=== PATIENT | male | born 1985 | race Caucasian/White ===

== ENCOUNTER → 2024-02-15 09:56 | Outpatient (BNVA) | payer MEDICAID, SELFPAY | PROVIDERS: Visit Provider Podiatrist Foot & Ankle Surgery | DX: M79.672 Pain in left foot (principal); E11.42 Type 2 diabetes mellitus with diabetic polyneuropathy; M72.2 Plantar fascial fibromatosis; M24.572 Contracture, left ankle; G62.9 Polyneuropathy, unspecified | CPT/HCPCS: 73630 ==

== ENCOUNTER 2024-06-02 17:19 | Emergency (ER) | payer MEDICAID, SELFPAY ==
[2024-06-02 17:22] VITALS: BP 125/80; PULSE 109; RESP 24; TEMP 36.6; O2SAT 99; BMI 29.7
--- NOTE | 2024-06-02 17:28 | ECG_ITS ---
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 Measurements Intervals [place] Rate: 111 P: 65 [place]: 164 QRS: 247 QRSD: 98 T: 80 QT: 329 QTc: 448 Interpretive Statements SINUS TACHYCARDIA POSSIBLE LEFT ATRIAL ENLARGEMENT [-0.1mV P-WAVE IN V1/V2] INDETERMINATE AXIS PATTERN CONSISTENT WITH PULMONARY DISEASE No previous ECG available for comparison Electronically Signed On 06-02-2024 20:06:27 CDT by Abundio Sky M.D. [email or web address]
--- NOTE | 2024-06-02 17:31 | XRR_ITS ---
PROCEDURE INFORMATION: Exam: XR Chest Exam date and time: 06/02/2024 5:35 PM Age: 38 years old Clinical indication: Pain; Chest pressure; Additional info: Cp TECHNIQUE: Imaging protocol: Radiologic exam of the chest. Views: 1 view. COMPARISON: No relevant prior studies available. FINDINGS: Lungs: Lungs are clear bilaterally. Pleural spaces: No pleural effusion. No pneumothorax. Heart/Mediastinum: The cardiac silhouette and mediastinal contours are unremarkable. Bones/joints: Unremarkable for age. XR/XR chest 1V portable [id number] IMPRESSION: No acute cardiopulmonary process.
[2024-06-02 17:42] LABS: Basophils # 0.1 10^3/uL (0.0-0.1); Basophils % 0.4 %; Eosinophils % 0.2 %; Lymphocytes # 2.6 10^3/uL (0.8-4.8); Lymphocytes % 14.9 %; Mean Corpuscular HGB Conc 35.8 g/dL (30-55); Mean Corpuscular Hemoglobin 29.7 pg (27-33); Mean Corpuscular Volume 82.9 fl (82-101); Mean Platelet Volume 10.4 fL (7.4-10.4); Monocytes # 1.2 10^3/uL (0.2-0.9); Monocytes % 6.8 %; Neutrophils # 13.77 10^3/uL (1.8-7.7); Neutrophils % 77.4 %; Nucleated Red Blood Cells % 0 %; Platelet Count 319 10^3/cmm (157-399); Red Blood Count 6.03 10^6/uL (3.85-5.65); Red Cell Distribution Width 12.7 % (12.1-15.1); White Blood Count 17.77 10^3/uL (3.29-11.43)
--- NOTE | 2024-06-02 17:54 | ED_ITS ---
HPI - Chest Pain 2 General: Chief Complaint: Chest Pain Stated Complaint: WEAKNESS Time Seen by Provider: 06/02/24 17:21 Source: patient and EMS Mode of arrival: EMS Limitations: no limitations History of Present Illness: 38-year-old male who is currently rehab at [facility] states that he was outside playing basketball in the heat states he felt like yellow overheated started having chest pain along with shortness of breath and felt like he was going to pass out. He states he does have a cardiac history no stents in the past. He denies any vomiting denies any fevers. Associated symptoms: Reports dyspnea; Deny abdominal pain, fever(s), nausea or vomiting Related Data Previous Rx's Medication Instructions Recorded diabetic shoes with 3 inserts #1 ea 02/15/24 Allergies Allergy/AdvReac Type Severity Reaction Status Date / Time ceftriaxone [From Rocephin] Allergy ALGY-Anaphy Verified 06/02/24 17:36 laxis paxil Allergy ADR-Halluci Uncoded 06/02/24 17:36 nating zoloft Allergy ADR-Halluci Uncoded 06/02/24 17:36 nating Review of Systems 2 Const: Denies: fever(s), chills, body aches or change in appetite ENMT: Denies: throat pain or dental pain Card: Reports: chest pain and pre-syncope Resp: Reports: dyspnea GI: Denies: abdominal pain, nausea, vomiting or diarrhea Musc: Denies: neck pain or back pain Skin/Breast: Denies: rash Neuro: Denies: headache(s) Physical Exam 2 Const: COMMON NORMALS: patient oriented x3 HENMT: COMMON NORMALS: normocephalic and atraumatic HEAD & SCALP: n ormocephalic and atraumatic Eye: COMMON NORMALS: EOMs intact bilaterally Neck/C-Spine: COMMON NORMALS: full ROM and supple Chest: COMMONS NORMALS: normal inspection of the chest and normal palpation of entire chest wall Resp: COMMON NORMALS: normal respiratory effort, No retractions, No use of accessory muscles and clear to auscultation bilaterally AUSCULTATION: clear to auscultation bilaterally Cardio: COMMON NORMALS: regular rhythm and No murmurs present (Cardio) R ATE: tachycardic RHYTHM: regular rhythm GI: COMMON NORMALS: Normal to inspection, nondistended, normoactive bowel sounds present, Soft to palpation, non-tender and no masses PALPATION: Yes Soft to palpation Extremity: COMMON NORMALS: normal to inspection and full ROM Neuro: COMMON NORMALS: patient oriented x3, moves all extremities and no focal motor deficits Psych: COMMON NORMALS: mental status grossly normal, Normal thought process present and cooperative THOUGHT PROCESS: Normal thought process present Skin: COMMON NORMALS: no rashes or lesions noted and no wounds GENERAL SKIN EXAM: no rashes or lesions noted Course 2 Vital Signs: Vital signs: Vital Signs Temperature 97.9 F 06/02/24 17:22 Pulse Rate 111 H 06/02/24 20:11 Respiratory Rate 16 06/02/24 20:11 Blood Pressure 123/92 06/02/24 20:11 Pulse Oximetry 100 06/02/24 20:11 Oxygen Delivery Me thod Room Air 06/02/24 20:11 MDM - Chest Pain Medical Decision Making Patient presents here with heat exposure likely heat exhaustion he had had some chest pain shortness of breath his troponins here are negative CT scan showed no PE he feels improved after fluids he stable for discharge drink plenty fluids avoid the heat return if worsening. Medical Records I reviewed the patient's medical records. Lab Data I reviewed the patient's lab results. 06/02/24 17:08 06/02/24 17:08 Radiology Impressions Chest X-Ray 06/02/24 17:31 IMPRESSION: No acute cardiopulmonary process. Chest CTA 06/02/24 18:07 IMPRESSION: 1. No evidence for pulmonary embolism. 2. No acute cardiopulmonary process. 3. Incidental/nonacute findings are listed in the report. Laboratory Results WBC 17.77 10^3/uL (3.29-11.43) H 06/02/24 17:08 RBC 6.03 10^6/uL (3.85-5.65) H 06/02/24 17:08 Hgb 17.90 g/dL (11.27-16.99) H 06/02/24 17:08 Hct 50.0 % (37-53) 06/02/24 17:08 MCV 82.9 fl (82-101) 06/02/24 17:08 MCH 29.7 pg (27-33) 06/02/24 17:08 MCHC 35.8 g/dL (30-55) 06/02/24 17:08 RDW 12.7 % (12.1-15.1) 06/02/24 17:08 Plt Count 319 10^3/cmm (157-399) 06/02/24 17:08 MPV 10.4 fL (7.4-10.4) 06/02/24 17:08 Neut % (Auto) 77.4 % 06/02/24 17:08 Lymph % (Auto) 14.9 % 06/02/24 17:08 [place] % (Auto) 6.8 % 06/02/24 17:08 Eos % (Auto) 0.2 % 06/02/24 17:08 Baso % (Auto) 0.4 % 06/02/24 17:08 Neut # (Auto) 13.77 10^3/uL (1.8-7.7) H 06/02/24 17:08 Lymph # (Auto) 2.6 10^3/uL (0.8-4.8) 06/02/24 17:08 [place] # (Auto) 1.2 10^3/uL (0.2-0.9) H 06/02/24 17:08 Eos # (Auto) 0.0 10^3/uL (0.0-0.8) 06/02/24 17:08 Baso # (Auto) 0.1 10^3/uL (0.0-0.1) 06/02/24 17:08 Nucleated RBC % (auto) 0 % 06/02/24 17:08 Nucleated RBCs # 0.0 /100WBC 06/02/24 17:08 D-Dimer 0.75 ug/mLFEU (0-0.59) H 06/02/24 17:08 Sodium 136 mmol/L (136-145) 06/02/24 17:08 Potassium 3.4 mmol/L (3.5-5.1) L 06/02/24 17:08 Chloride 96 mmol/L (98-107) L 06/02/24 17:08 Carbon Dioxide 19 mmol/L (22-29) L 06/02/24 17:08 Anion Gap 24.4 (5-19) H 06/02/24 17:08 BUN 35 mg/dL (6-20) H 06/02/24 17:08 Creatinine 1.7 mg/dL (0.7-1.2) H 06/02/24 17:08 GFR Calculation 45.6 mL/min (90-130) L 06/02/24 17:08 Glucose 72 mg/dL (65-115) 06/02/24 17:08 Calculated Osmolality 289 mOsm/kg (285-295) 06/02/24 17:08 Calcium 9.7 mg/dL (8.5-10.5) 06/02/24 17:08 Total Bilirubin 0.2 mg/dL (0.15-1.2) 06/02/24 17:08 AST 31 U/L (0-40) 06/02/24 17:08 ALT 35 U/L (0-41) 06/02/24 17:08 Alkaline Phosphatase 106 U/L (40-130) 06/02/24 17:08 Creatine Kinase 331 U/L (39-308) H* 06/02/24 17:08 Troponin T Baseline 27 ng/L (0-15) H 06/02/24 17:08 Troponin T 120 Minute 6.48 ng/L (0-15) 06/02/24 19:11 Delta Troponin T -20.52 ABS# (0-10) L 06/02/24 19:11 NT-Pro-B Natriuret Pep 183 pg/mL (0-125) H 06/02/24 17:08 Total Protein 7.1 g/dL (6.6-8.7) 06/02/24 17:08 Albumin 4.4 g/dL (3.5-5.2) 06/02/24 17:08 Globulin 2.7 g/dL (1.3-4.6) 06/02/24 17:08 All radiology interpretation(s) finalized by discharge Discharge Plan Discharge Patient Disposition: Home Clinical Impression: Chest pain, Heat exposure Condition: Stable Prescriptions: No Action (DME) diabetic shoes with 3 inserts See Rx Instructions .Route .MEDSUPPLY Qty: 1 0RF Rx Instructions: As directed to the shoe guys Discharge Orders: Discharge ED (Routine); Ordered 06/02/24 Ordered By: George Porras Referrals: Serenity Long DO [Primary Care Provider] - Discharge Diet: Advance as tolerated Discharge Activity: Resume usual activity Patient Instructions: Chest Pain (ED), Heat Exhaustion (ED) Coding Level of Care Code ED Oracle Apex Developer for Roxanne Barrientos
[2024-06-02 18:06] LABS: D Dimer 0.75 ug/mLFEU (0-0.59)
--- NOTE | 2024-06-02 18:07 | CTR_ITS ---
PROCEDURE INFORMATION: Exam: CTA Chest With Contrast Exam date and time: 06/02/2024 6:18 PM Age: 38 years old Clinical indication: Pain and abnormal findings; Abnormal diagnostic tests; Elevated d-dimer and other: Elevated base trop; Shortness of breath; Chest pressure; Patient HX: C/O chest pain with SOB after playing basketball. Dimer of 0.75 with elevated base trop. History of mi. TECHNIQUE: Imaging protocol: Computed tomographic angiography of the chest with contrast. Exam focused on the arteries. 3D rendering (Not supervised by radiologist): MIP and/or 3D reconstructed images were created by the technologist. Radiation optimization: All CT scans at this facility use at least one of these dose optimization techniques: automated exposure control; mA and/or kV adjustment per patient size (includes targeted exams where dose is matched to clinical indication); or iterative reconstruction. Contrast material: OMNI 350; Contrast volume: 75 ml; Contrast route: INTRAVENOUS (IV); COMPARISON: CR (CHEST, ) 06/02/2024 5:35 PM RADIATION DOSE METRICS: Total DLP (mGy-cm): 551.26 FINDINGS: Pulmonary arteries: No filling defects in the pulmonary arteries to suggest pulmonary embolism. Aorta: No evidence for aortic aneurysm. Evaluation for aortic dissection is limited due to the phase of contrast-enhancement. Other arteries: Minimal atherosclerotic changes in the visualized arteries. Trachea: Tracheobronchial structures are patent. Lungs: Lungs are clear bilaterally. No pulmonary parenchymal nodules or masses. Pleural spaces: No pneumothorax. No pleural effusion. Heart: No cardiomegaly. No pericardial effusion. Esophagus: The esophagus is unremarkable. Mediastinal space: No mediastinal hematoma. No pneumomediastinum. Lymph nodes: No lymphadenopathy. Liver: The visualized liver is unremarkable. Gallbladder and biliary ducts: The visualized gallbladder is unremarkable. No dilatation of the visualized bile ducts. Pancreas: The visualized pancreas is unremarkable. No pancreatic ductal dilatation. Spleen: The visualized spleen is unremarkable. Adrenal glands: Low density nodule in the visualized right adrenal gland measuring 0.8 x 1.1 cm (series 6, image 5). Findings are consistent with an adrenal adenoma. Nodularity of the visualized left adrenal gland without a specific nodule. Kidneys and ureters: The visualized right and left kidneys are unremarkable. Bones/joints: Degenerative changes in the spine and shoulders. Soft tissues: No acute abnormality in the extrathoracic soft tissues. CT/CT angio chest PE protcl [id number] IMPRESSION: 1. No evidence for pulmonary embolism. 2. No acute cardiopulmonary process. 3. Incidental/nonacute findings are listed in the report.
[2024-06-02] MEDS: ondansetron 2 mg/ML SDV 2 mL 4 MG IVP (18:08)
[2024-06-02 18:09] LABS: Troponin(5th) Baseline 27 ng/L (0-15)
[2024-06-02 18:10] VITALS: RESP 20; O2SAT 100
[2024-06-02] MEDS: morphine 4 mg/mL SDV 1 mL IVP (18:10)
[2024-06-02] MEDS: sodium chloride 0.9% 1,000 ML 999 ML IV ×2 (18:11→19:15)
[2024-06-02 18:12] VITALS: BP 126/93; PULSE 106; O2SAT 100
[2024-06-02 18:17] LABS: Alanine Aminotransferase 35 U/L (0-41); Albumin Level 4.4 g/dL (3.5-5.2); Alkaline Phosphatase 106 U/L (40-130); Anion Gap 24.4 (5-19); Aspartate Amino Transferase 31 U/L (0-40); Blood Urea Nitrogen 35 mg/dL (6-20); Calcium 9.7 mg/dL (8.5-10.5); Carbon Dioxide 19 mmol/L (22-29); Chloride 96 mmol/L (98-107); Creatinine Clr Calc Pharmacy 81.0795; Globulin 2.7 g/dL (1.3-4.6); Glomerular Filtration Rate 45.6 mL/min (90-130); Glucose 72 mg/dL (65-115); NT Pro B Type Natriuretic Pept 183 pg/mL (0-125); Osmolality Calculated 289 mOsm/kg (285-295); Potassium 3.4 mmol/L (3.5-5.1); Sodium 136 mmol/L (136-145); Total Bilirubin 0.2 mg/dL (0.15-1.2); Total Protein 7.1 g/dL (6.6-8.7)
[2024-06-02 18:20] LABS: Creatine Phosphokinase 331 U/L (39-308)
[2024-06-02] MEDS: iohexol 350 mg/mL 500 mL Btl (per mL) IV (18:24)
[2024-06-02 19:11] VITALS: BP 134/93; PULSE 103; RESP 20; O2SAT 97
[2024-06-02 19:39] LABS: Troponin 5 2HR 6.48 ng/L (0-15)
[2024-06-02 19:40] LABS: Troponin 5 2HR Delta -20.52 ABS# (0-10)
[2024-06-02] MEDS: LORazepam 2 mg/mL INJ 1 mL 1 MG IVP (20:09)
[2024-06-02 20:11] VITALS: BP 123/92; PULSE 111; RESP 16; O2SAT 100
[2024-06-02 21:29] VITALS: BP 127/92; PULSE 98; RESP 18; O2SAT 98
== END 2024-06-02 21:33 | disposition home or self-care (01) ==
PROVIDERS: Emergency Provider Emergency Medicine; PCP Family Medicine
DX: R07.9 Chest pain, unspecified (principal); T67.9XXA Effect of heat and light, unspecified, initial encounter; X30.XXXA Exposure to excessive natural heat, initial encounter
CPT/HCPCS: 36415; 71045; 71275; 80053; 82550; 83880; 84484; 85025; 85378; 93005; 96361; 96374; 96375; 99285; J2060; J2270; J2405; J7030; Q9967

== ENCOUNTER 2024-06-05 21:57 | Observation (INO) | payer MEDICAID, SELFPAY ==
[2024-06-05] VITALS (22 sets, daily range): BP systolic 100–110; BP diastolic 67–78; PULSE 92–111; RESP 0–23; TEMP 36.7; O2SAT 90–99; BMI 33.5
--- NOTE | 2024-06-05 22:02 | ECG_ITS ---
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 Measurements Intervals [place] Rate: 108 P: 54 [place]: 144 QRS: -69 QRSD: 108 T: 65 QT: 350 QTc: 470 Interpretive Statements SINUS TACHYCARDIA POSSIBLE LEFT ATRIAL ENLARGEMENT [-0.1mV P-WAVE IN V1/V2] INDETERMINATE AXIS PATTERN CONSISTENT WITH PULMONARY DISEASE Compared to ECG 06/02/2024 17:28:26 No significant changes Electronically Signed On 06-06-2024 0:21:21 CDT by Alvaro Adames M.D. [id number]
--- NOTE | 2024-06-05 22:03 | ED_ITS ---
HPI - Seizure 2 General: Chief Complaint: Seizure Stated Complaint: post seizure Time Seen by Provider: 06/05/24 22:01 History of Present Illness: HPI Narrative: Patient presents to the ER by EMS from [facility] after having a witnessed seizure. Patient does have a history of seizures but is not had one approximately 1 year. When EMS arrived there he was postictal they checked his blood glucose and it was 46 they gave him 25 g of dextrose and D10 solution they rechecked his blood sugar it was 108. Patient is alert oriented but just feels exhausted he said he is back to normal now I did give him 4 mg Zofran on route. Patient does have a history of diabetes and is on Lantus. Blood glucose in ER was 89. Related Data Previous Rx's Medication Instructions Recorded diabetic shoes with 3 inserts #1 ea 02/15/24 Allergies Allergy/AdvReac Type Severity Reaction Status Date / Time ceftriaxone [From Rocephin] Allergy ALGY-Anaphy Verified 06/02/24 17:36 laxis paxil Allergy ADR-Halluci Uncoded 06/02/24 17:36 nating zoloft Allergy ADR-Halluci Uncoded 06/02/24 17:36 nating Review of Systems 2 General: Reports: 10 or more systems reviewed and unremarkable except in HPI and below Physical Exam 2 Const: COMMON NORMALS: no acute distress, average body habitus, patient oriented x3, no limitations, healthy appearing, alert and well nourished HENMT: COMMON NORMALS: normocephalic, atraumatic, hearing grossly normal bilaterally, external ears normal, Normal external nose present and moist oral mucous membranes HEAD & SCALP: normocephalic and atraumatic NOSE: Normal external nose present EXTERNAL EAR: Yes external ears normal Neck/C-Spine: COMMON NORMALS: no JVD Chest: COMMONS NORMALS: normal inspection of the chest and normal palpation of entire chest wall Resp: COMMON NORMALS: normal respiratory effort, No retractions, No use of accessory muscles and clear to auscultation bilaterally AUSCULTATION: clear to auscultation bilaterally Cardio: COMMON NORMALS: no JVD, regular rate, regular rhythm, S1 normal heart sound present, S2 normal heart sound present, No gallops present (Cardio), No clicks present (Cardio), No murmurs present (Cardio) and No rub (Cardio) R ATE: regular rate RHYTHM: regular rhythm HEART SOUNDS: S1 normal heart sound present and S2 normal heart sound present GI: COMMON NORMALS: Normal to inspection, nondistended, normoactive bowel sounds present, Soft to palpation, non-tender, No hepatosplenomegaly present and no masses PALPATION: Yes Soft to palpation and Yes No hepatosplenomegaly present Neuro: COMMON NORMALS: patient oriented x3 SENSORIUM/ORIENTATION: Yes alert Course 2 Vital Signs: Vital signs: Vital Signs Temperature 98.0 F 06/05/24 21:58 Pulse Rate 91 06/06/24 00:00 Respiratory Rate 18 06/06/24 00:00 Blood Pressure 108/79 06/06/24 00:00 Pulse Oximetry 96 06/06/24 00:00 Oxygen Delivery Me thod Room Air 06/05/24 21:58 MDM - Seizure Differential Diagnosis Seizure Differential Diagnosis: Likely epileptic seizure Medical Records Attestation: I reviewed the patient's medical records. Lab Data Attestation: I reviewed the patient's lab results. 06/05/24 22:00 06/05/24 22:00 Labs: Laboratory Results WBC 10.55 10^3/uL (3.29-11.43) 06/05/24 22:00 RBC 5.44 10^6/uL (3.85-5.65) 06/05/24 22:00 Hgb 15.80 g/dL (11.27-16.99) 06/05/24 22:00 Hct 46.1 % (37-53) 06/05/24 22:00 MCV 84.7 fl (82-101) 06/05/24 22:00 MCH 29.0 pg (27-33) 06/05/24 22:00 MCHC 34.3 g/dL (30-55) 06/05/24 22:00 RDW 12.5 % (12.1-15.1) 06/05/24 22:00 Plt Count 268 10^3/cmm (157-399) 06/05/24 22:00 MPV 10.1 fL (7.4-10.4) 06/05/24 22:00 Neut % (Auto) 63.9 % 06/05/24 22:00 Lymph % (Auto) 24.8 % 06/05/24 22:00 [place] % (Auto) 9.3 % 06/05/24 22:00 Eos % (Auto) 1.1 % 06/05/24 22:00 Baso % (Auto) 0.6 % 06/05/24 22:00 Neut # (Auto) 6.74 10^3/uL (1.8-7.7) 06/05/24 22:00 Lymph # (Auto) 2.6 10^3/uL (0.8-4.8) 06/05/24 22:00 [place] # (Auto) 1.0 10^3/uL (0.2-0.9) H 06/05/24 22:00 Eos # (Auto) 0.1 10^3/uL (0.0-0.8) 06/05/24 22:00 Baso # (Auto) 0.1 10^3/uL (0.0-0.1) 06/05/24 22:00 Nucleated RBC % (auto) 0 % 06/05/24 22:00 Nucleated RBCs # 0.0 /100WBC 06/05/24 22:00 Sodium 136 mmol/L (136-145) 06/05/24 22:00 Potassium 3.3 mmol/L (3.5-5.1) L 06/05/24 22:00 Chloride 93 mmol/L (98-107) L 06/05/24 22:00 Carbon Dioxide 24 mmol/L (22-29) 06/05/24 22:00 Anion Gap 22.3 (5-19) H 06/05/24 22:00 BUN 28 mg/dL (6-20) H 06/05/24 22:00 Creatinine 2.0 mg/dL (0.7-1.2) H 06/05/24 22:00 GFR Calculation 37.8 mL/min (90-130) L 06/05/24 22:00 Glucose 74 mg/dL (65-115) 06/05/24 22:00 POC Glucose 96 mg/dL (70-110) 06/06/24 00:00 Calculated Osmolality 286 mOsm/kg (285-295) 06/05/24 22:00 Calcium 9.4 mg/dL (8.5-10.5) 06/05/24 22:00 Magnesium 2.5 mg/dL (1.7-2.3) H 06/05/24 22:00 Total Bilirubin 0.3 mg/dL (0.15-1.2) 06/05/24 22:00 AST 30 U/L (0-40) 06/05/24 22:00 ALT 31 U/L (0-41) 06/05/24 22:00 Alkaline Phosphatase 107 U/L (40-130) 06/05/24 22:00 Total Protein 6.9 g/dL (6.6-8.7) 06/05/24 22:00 Albumin 4.1 g/dL (3.5-5.2) 06/05/24 22:00 Globulin 2.8 g/dL (1.3-4.6) 06/05/24 22:00 Amorphous Sediment Not Reportable 06/05/24 23:35 All radiology interpretation(s) finalized by discharge ED provider radiology interpretation(s): Patient arrived to the ER after having a seizure in the hypoglycemic. Patient admitted to using his Lantus to 25 units which is his normal dose. Patient has been had to give multiple doses of D10 to keep his blood sugar up while he was eating and drinking. Patient is unable to eat or drink anymore and is getting tired wanting to go to sleep. Dr. Martin was consulted we will place the patient in observation on MedSur on a D10 drip. Discharge Plan Discharge Patient Disposition: Placed in Observation Clinical Impression: Hypoglycemia due to insulin, Seizure Coding Level of Care Code ED Leather Cleaner for Roxanne Barrientos
[2024-06-05 22:06] LABS: Glucose Point of Care 89 mg/dL (70-110)
[2024-06-05 22:08] LABS: Basophils # 0.1 10^3/uL (0.0-0.1); Basophils % 0.6 %; Eosinophils # 0.1 10^3/uL (0.0-0.8); Eosinophils % 1.1 %; Hematocrit 46.1 % (37-53); Lymphocytes # 2.6 10^3/uL (0.8-4.8); Lymphocytes % 24.8 %; Mean Corpuscular HGB Conc 34.3 g/dL (30-55); Mean Corpuscular Volume 84.7 fl (82-101); Mean Platelet Volume 10.1 fL (7.4-10.4); Monocytes % 9.3 %; Neutrophils # 6.74 10^3/uL (1.8-7.7); Neutrophils % 63.9 %; Nucleated Red Blood Cells % 0 %; Platelet Count 268 10^3/cmm (157-399); Red Blood Count 5.44 10^6/uL (3.85-5.65); Red Cell Distribution Width 12.5 % (12.1-15.1); White Blood Count 10.55 10^3/uL (3.29-11.43)
[2024-06-05 22:25] LABS: Alanine Aminotransferase 31 U/L (0-41); Albumin Level 4.1 g/dL (3.5-5.2); Alkaline Phosphatase 107 U/L (40-130); Anion Gap 22.3 (5-19); Aspartate Amino Transferase 30 U/L (0-40); Blood Urea Nitrogen 28 mg/dL (6-20); Calcium 9.4 mg/dL (8.5-10.5); Carbon Dioxide 24 mmol/L (22-29); Chloride 93 mmol/L (98-107); Creatinine Clr Calc Pharmacy 72.9406; Globulin 2.8 g/dL (1.3-4.6); Glomerular Filtration Rate 37.8 mL/min (90-130); Glucose 74 mg/dL (65-115); Magnesium 2.5 mg/dL (1.7-2.3); Osmolality Calculated 286 mOsm/kg (285-295); Potassium 3.3 mmol/L (3.5-5.1); Sodium 136 mmol/L (136-145); Total Bilirubin 0.3 mg/dL (0.15-1.2); Total Protein 6.9 g/dL (6.6-8.7)
[2024-06-05 22:36] LABS: Glucose Point of Care 59 mg/dL (70-110)
[2024-06-05] MEDS: dextrose 10% 250 ML 1000 ML IV (22:41)
[2024-06-05 23:06] LABS: Glucose Point of Care 157 mg/dL (70-110)
[2024-06-05 23:36] LABS: Glucose Point of Care 128 mg/dL (70-110)
[2024-06-06] VITALS (19 sets, daily range): BP systolic 101–155; BP diastolic 71–102; PULSE 63–102; RESP 15–19; TEMP 35.9–36.6; O2SAT 94–99
[2024-06-06 00:02] LABS: Glucose Point of Care 96 mg/dL (70-110)
[2024-06-06 00:09] LABS: Charge for UA Resulting for Rev
[2024-06-06 00:12] LABS: Bilirubin Urine Negative (Negative); Blood Urine Non-haemolysed trace (Negative); Glucose Urine UA 3+ (Normal); Ketones Urine Negative (Negative); Leukocyte Esterase Urine Negative (Negative); Nitrate Urine Negative (Negative); Protein Urine 2+ (Negative); Specific Gravity, Urine 1.013 (1.005-1.030); Urine Appearance Clear (CLEAR); Urine Color Yellow (Yellow); Urobilinogen Urine 0.2 mg/dL (Negative)
[2024-06-06 00:19] LABS: Amphetamines Screen Urine Negative (Negative); Barbiturates Screen Urine Negative (Negative); Benzodiazepines Screen Urine Negative (Negative); Cocaine Screen Urine Negative (Negative); Opiate Screen Urine Negative (Negative); PCP Screen Urine Negative (Negative); THC Screen Urine Negative (Negative)
[2024-06-06] MEDS: dextrose 10% 1,000 ML 75 ML IV (00:35)
[2024-06-06 00:46] LABS: Glucose Point of Care 96 mg/dL (70-110)
--- NOTE | 2024-06-06 01:00 | PM.HP ---
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 He was brought in for evaluation in ER today after witnessed seizure at [facility]. Blood sugar checked at that time was 46. He has a history of 1 seizure back in September 2023 which she states occurred after he became hypoglycemic after giving himself insulin and being unable to tolerate a meal afterwards due to GI issues and vomiting. He received D10, blood sugar subsequently 108, but has been found not able to at the moment maintain blood sugars on his own with blood sugars decreasing again down into the 50s, requiring additional D10 push. So far without recurrence of fever. He otherwise is found to have mild hypokalemia at 3.3, but also worsening CHRISTY, creatinine 2, BUN 28. Unknown baseline renal function. Review of Systems Const: Denies: fever(s), chills, body aches or malaise ENMT: Denies: throat pain Card: Denies: chest pain, edema, pre-syncope or dyspnea on exertion Resp: Denies: dyspnea, productive cough, change in phlegm color or hemoptysis GI: Denies: abdominal pain, nausea, vomiting, diarrhea, constipation, hematochezia or melena : Denies: flank pain, difficulty urinating, urinary frequency or hematuria Musc: Denies: back pain, joint swelling or joint redness Skin/Breast: Denies: rash or new lesions Neuro: Reports: seizure-like activity; Denies: headache(s) or dizziness Medications/Allergies Home Medications Medication Instructions Recorded Confirmed Last Taken Type diabetic shoes with 3 inserts #1 ea 02/15/24 03/28/24 Unknown Rx Allergies Allergy/AdvReac Type Severity Reaction Status Date / Time ceftriaxone [From Rocephin] Allergy ALGY-Anaphy Verified 06/02/24 17:36 laxis paxil Allergy ADR-Halluci Uncoded 06/02/24 17:36 nating zoloft Allergy ADR-Halluci Uncoded 06/02/24 17:36 nating PFSH Acute PFSH: Medical History CHF (congestive heart failure) Ischemic cardiomyopathy Marijuana use Alcohol use disorder TIA (transient ischemic attack) After coronary angiography RCA occlusion CAD (coronary artery disease) Seizure in Sep 2023, after episode of hypoglycemia Type 2 diabetes mellitus Social History Alcohol intake: current Alcohol type: hard liquor Alcohol use comment: In rehab. Last drink over 1 mo ago. Substance/Drug Use: current Substance/Drug use type: Marijuana Vitals/I&O/Wt Last Vital Signs Temp 98.0 F 06/05/24 21:58 Pulse 93 06/06/24 00:50 Resp 15 06/06/24 00:50 BP 116/77 06/06/24 00:50 Pulse Ox 96 06/06/24 00:50 O2 Del Method Room Air 06/05/24 21:58 06/05/24 06/05/24 06/06/24 14:59 22:59 06:59 Intake Total 250 / 250 Balance 250 / 250 Weight last 48 hrs Weight 124.738 kg Physical Exam Const: COMMON NORMALS: patient oriented x3 and alert GENERAL APPEARANCE: cooperative ORIENTATION/CONSCIOUSNESS: Yes awake HENMT: COMMON NORMALS: oropharynx normal OTHER: Poor dentition. Neck/C-Spine: COMMON NORMALS: no JVD Resp: COMMON NORMALS: normal respiratory effort and clear to auscultation bilaterally AUSCULTATION: clear to auscultation bilaterally Cardio: COMMON NORMALS: no JVD, regular rhythm, S1 normal heart sound present, S2 normal heart sound present and No murmurs present (Cardio) RHYTHM: regular rhythm HEART SOUNDS: S1 normal heart sound present and S2 normal heart sound present GI: COMMON NORMALS: Normal to inspection, nondistended, normoactive bowel sounds present, Soft to palpation and non-tender PALPATION: Yes Soft to palpation Extremity: COMMON NORMALS: no joint enlargement and no pedal edema Neuro: COMMON NORMALS: patient oriented x3 and moves all extremities SENSORIUM/ORIENTATION: Yes alert Skin: COMMON NORMALS: no rashes or lesions noted GENERAL SKIN EXAM: no rashes or lesions noted Data 06/05/24 22:00 06/05/24 22:00 A&P Assessment and plan (1) Hypoglycemia due to insulin: Persistent hypoglycemia complicated by seizure episode, blood glucose after seizure found to be 46. Reports also prior episode of seizure due to hypoglycemia due to GI issue/inability to tolerate a meal with vomiting after administration of short acting insulin back in September.Reviewed vitals, CBC, CMP, magnesium, UA, UDS, EKG on my interpretation with mild sinus tachycardia, without evidence of ischemia noted to have Q waves in 3, aVF, pending official read. Reviewed ER note, discussed with ER provider. 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 Hold insulin, Trulicity, Farxiga, D10 infusion, monitor for risk of hyperglycemia. Further episodes of hypoglycemia. POC glucose checks requested. Hypoglycemia protocol. Seizure precautions. Once ready to resume insulin will needed resumed at lower dose. Would discontinue Trulicity, Farxiga for now given CHRISTY until follow-up with primary provider. Consistent carbohydrate diet. (2) Seizure: He is awake and alert, back to baseline. No pain or discomfort. No headache. Seizure episode witnessed at [facility], Seizure appears to be complication of severe hypoglycemia. As above. Seizure precautions. Denies any EtOH related seizure in the past and has not had any EtOH intake in over a month. (3) CHRISTY (acute kidney injury): With dehydration episode, heat exhaustion visit to ER on 06/02, received fluid resuscitation set time, additionally underwent CTA which was negative for PE after episode of chest pain. Troponin with mild elevation. Creatinine at time 1.7. He does take ibuprofen, additionally has continued taking torsemide possibly with further contribution to dehydration, additionally he is also on Trulicity and Farxiga possibly contributing to CHRISTY. Discussed with him discontinue ibuprofen and do not restart. Hold Farxiga, Trulicity, would not restart at discharge until follow-up and reassessment of renal function. Hold torsemide as well. Risk of dehydration, although is also at risk of fluid overload with history of CHF, cardiomyopathy, TREE EXPERT RCA, unknown type of CHF, will hold off on any IV hydration at this time as he does take oral intake. Assess kidney ultrasound. Reassess kidney function. Check CK. Plan IDDM: Hold insulin. Consult carbohydrate diet. CAD, TREE EXPERT RCA Continue aspirin. Requesting to confirm home medications. History of TIA EtOH, Marijuana use disorder: Last drink over a month ago. Currently in rehabilitation at [facility]. History of seizure episode related to hypoglycemia Psychiatric history: Requesting to confirm home medications. Requesting to confirm home medications, please review once available. 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 Diagnoses Hypoglycemia due to insulin E16.0; T38.3X5A Seizure R56.9 CHRISTY (acute kidney injury) N17.9
--- NOTE | 2024-06-06 01:33 | US_ITS ---
WS: [id number] RENAL ULTRASOUND URINARY BLADDER ULTRASOUND HISTORY: CHRISTY COMPARISON: None available. TECHNIQUE: 2-D and color Doppler imaging of the kidney submitted. Right kidney: 11.6 cm x 6.5 cm x 7.1 cm. Normal echogenicity with no hydronephrosis or mass. Left kidney: 12.2 cm x 6.1 cm x 5.2 cm. Normal echogenicity with no hydronephrosis or mass. Aorta: Normal. Urinary Bladder: Normal distention. Prevoid volume: 396 mL. Post void volume: 7 mL. US/US renal BI with PV bladder IMPRESSION: Normal renal ultrasound. No post void urinary bladder residual noted. No intraluminal filling defects wi thin the bladder.
[2024-06-06 02:09] LABS: Glucose Point of Care 114 mg/dL (70-110)
[2024-06-06 02:22] LABS: Creatine Phosphokinase 511 U/L (39-308)
[2024-06-06 03:12] LABS: Glucose Point of Care 109 mg/dL (70-110)
[2024-06-06 05:59] LABS: Estmated Average Glucose 217; Hemoglobin A1C 9.2 % (4.0-6.0)
[2024-06-06 06:04] LABS: Basophils # 0.1 10^3/uL (0.0-0.1); Basophils % 0.5 %; Eosinophils # 0.1 10^3/uL (0.0-0.8); Eosinophils % 1.1 %; Hematocrit 45.7 % (37-53); Lymphocytes % 21.3 %; Mean Corpuscular HGB Conc 33.7 g/dL (30-55); Mean Corpuscular Hemoglobin 28.9 pg (27-33); Mean Corpuscular Volume 85.7 fl (82-101); Mean Platelet Volume 9.6 fL (7.4-10.4); Monocytes # 0.7 10^3/uL (0.2-0.9); Monocytes % 7.5 %; Neutrophils # 6.34 10^3/uL (1.8-7.7); Neutrophils % 69.4 %; Nucleated Red Blood Cells % 0 %; Platelet Count 225 10^3/cmm (157-399); Red Blood Count 5.33 10^6/uL (3.85-5.65); Red Cell Distribution Width 12.4 % (12.1-15.1); White Blood Count 9.15 10^3/uL (3.29-11.43)
[2024-06-06 06:14] LABS: Alanine Aminotransferase 25 U/L (0-41); Albumin Level 3.6 g/dL (3.5-5.2); Alkaline Phosphatase 102 U/L (40-130); Anion Gap 14.5 (5-19); Aspartate Amino Transferase 30 U/L (0-40); Blood Urea Nitrogen 22 mg/dL (6-20); Calcium 8.6 mg/dL (8.5-10.5); Carbon Dioxide 25 mmol/L (22-29); Chloride 97 mmol/L (98-107); Creatinine Clr Calc Pharmacy 69.0942; Globulin 2.7 g/dL (1.3-4.6); Glomerular Filtration Rate 45.6 mL/min (90-130); Glucose 202 mg/dL (65-115); Osmolality Calculated 285 mOsm/kg (285-295); Potassium 3.5 mmol/L (3.5-5.1); Sodium 133 mmol/L (136-145); Total Bilirubin 0.5 mg/dL (0.15-1.2); Total Protein 6.3 g/dL (6.6-8.7)
[2024-06-06 06:19] LABS: Glucose Point of Care 182 mg/dL (70-110)
[2024-06-06 08:19] LABS: Glucose Point of Care 163 mg/dL (70-110)
[2024-06-06] MEDS: nicotine 21 mg Patch 1 PATCH TRANSDERMA (10:27)
[2024-06-06] MEDS: aspirin 81 mg EC Tablet PO (10:28)
[2024-06-06] MEDS: atomoxetine 40 mg Capsule 80 MG PO (10:28)
[2024-06-06] MEDS: lamoTRIgine 25 mg Tablet PO ×2 (10:28→17:33)
[2024-06-06] MEDS: doxycycline 100 mg Tablet PO ×2 (10:28→17:33)
[2024-06-06] MEDS: ondansetron 2 mg/ML SDV 2 mL 4 MG IVP (11:44)
[2024-06-06] MEDS: acetaminophen 325 mg Tablet 650 MG PO ×2 (11:46→21:24)
[2024-06-06 11:50] LABS: Glucose Point of Care 196 mg/dL (70-110)
--- NOTE | 2024-06-06 12:26 | P.PN_ITS ---
Subjective 2 Subjective: Patient was seen this morning, denies any lightheadedness, dizziness, no nausea, no vomiting, no fevers, no chills, he tells me that he has not been eating well, denies any diarrhea, no nausea, no vomiting, he is alert oriented x 4, following all commands Vitals/I&O/Wt Last Vital Signs Temp 97.6 F 06/06/24 08:00 Pulse 95 06/06/24 08:00 Resp 15 06/06/24 08:00 BP 123/88 06/06/24 08:00 Pulse Ox 96 06/06/24 08:00 O2 Del Method Room Air 06/06/24 04:00 06/05/24 06/06/24 06/06/24 22:59 06:59 14:59 Intake Total 730 / 730 828.75 / 828.75 Output Total 360 / 360 Balance 370 / 370 828.75 / 828.75 Weight last 48 hrs Weight 75.206 kg Weight 75.07 kg Weight 124.738 kg Physical Exam 2 Const: COMMON NORMALS: no acute distress and patient oriented x3 Resp: COMMON NORMALS: normal respiratory effort, No retractions, No use of accessory muscles and clear to auscultation bilaterally AUSCULTATION: clear to auscultation bilaterally Cardio: COMMON NORMALS: regular rate, regular rhythm, S1 normal heart sound present and S2 normal heart sound present RATE: regular rate RHYTHM: r egular rhythm HEART SOUNDS: S1 normal heart sound present and S2 normal heart sound present GI: COMMON NORMALS: Normal to inspection, nondistended, normoactive bowel sounds present and non-tender Extremity: COMMON NORMALS: no pedal edema Neuro: COMMON NORMALS: patient oriented x3 Psych: COMMON NORMALS: mental status grossly normal Data 06/06/24 05:50 06/06/24 05:50 A&P Assessment and plan (1) Hypoglycemia due to insulin: -Resolved -Continue every 2 hours blood sugars -Stop D10 -Start insulin sliding scale -Persistent hypoglycemia complicated by seizure episode, blood glucose after seizure found to be 46. -Monitor closely -Likely discharge will hold Wendi Garcia -Adjust glargine dose -Hypoglycemia protocol likely discharged with glucagon (2) Seizure: He is awake and alert, back to baseline. No pain or discomfort. No headache. Seizure episode witnessed at [facility], Seizure appears to be complication of severe hypoglycemia. As above. Seizure precautions. Denies any EtOH related seizure in the past and has not had any EtOH intake in over a month. (3) CHRISTY (acute kidney injury): - Continue IV fluids Plan Rhabdomyolysis, elevated CPK, IV fluids IDDM: Resume insulin consult carbohydrate diet. 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 Requesting to confirm home medications. History of TIA EtOH, Marijuana use disorder: Last drink over a month ago. Currently in rehabilitation at [facility]. History of seizure episode related to hypoglycemia Psychiatric history: Requesting to confirm home medications. Attestations 2 Medical Necessity Statement*: Patient requires hospitalization due to hypoglycemia requiring inpatient monitoring, CHRISTY, elevated CPK Diagnoses Hypoglycemia due to insulin E16.0; T38.3X5A Seizure R56.9 CHRISTY (acute kidney injury) N17.9
[2024-06-06] MEDS: sodium chloride 0.9% 1,000 ML 75 ML IV (13:57)
[2024-06-06 17:24] LABS: Glucose Point of Care 132 mg/dL (70-110)
[2024-06-06] MEDS: carvedilol 3.125 mg Tablet PO (17:33)
[2024-06-06] MEDS: sacubitril/valsartan 24-26 mg Tablet 1 EACH PO (17:33)
[2024-06-06 20:26] LABS: Glucose Point of Care 166 mg/dL (70-110)
[2024-06-06] MEDS: trazodone 100 mg Tablet PO (21:25)
[2024-06-06] MEDS: cyclobenzaprine 10 mg Tablet PO (21:25)
[2024-06-07] VITALS: BP 106/62; PULSE 92; RESP 16; TEMP 37; O2SAT 97
[2024-06-07] MEDS: sodium chloride 0.9% 1,000 ML 75 ML IV (00:58)
[2024-06-07 04:00] VITALS: BP 124/83; PULSE 91; RESP 16; TEMP 37.1; O2SAT 96
[2024-06-07 05:13] LABS: Basophils # 0.1 10^3/uL (0.0-0.1); Basophils % 0.6 %; Eosinophils # 0.3 10^3/uL (0.0-0.8); Eosinophils % 3.3 %; Hematocrit 48.2 % (37-53); Lymphocytes # 2.8 10^3/uL (0.8-4.8); Lymphocytes % 32.8 %; Mean Corpuscular HGB Conc 32.6 g/dL (30-55); Mean Corpuscular Hemoglobin 28.8 pg (27-33); Mean Corpuscular Volume 88.3 fl (82-101); Mean Platelet Volume 10.3 fL (7.4-10.4); Monocytes # 0.6 10^3/uL (0.2-0.9); Monocytes % 7.6 %; Neutrophils % 55.5 %; Nucleated Red Blood Cells % 0 %; Platelet Count 239 10^3/cmm (157-399); Red Blood Count 5.46 10^6/uL (3.85-5.65); Red Cell Distribution Width 12.4 % (12.1-15.1); White Blood Count 8.47 10^3/uL (3.29-11.43)
[2024-06-07 05:37] LABS: Alanine Aminotransferase 28 U/L (0-41); Albumin Level 3.6 g/dL (3.5-5.2); Alkaline Phosphatase 98 U/L (40-130); Anion Gap 15.8 (5-19); Aspartate Amino Transferase 33 U/L (0-40); Blood Urea Nitrogen 18 mg/dL (6-20); Calcium 8.6 mg/dL (8.5-10.5); Carbon Dioxide 23 mmol/L (22-29); Chloride 104 mmol/L (98-107); Creatinine Clr Calc Pharmacy 83.9556; Globulin 2.7 g/dL (1.3-4.6); Glucose 114 mg/dL (65-115); Magnesium 2.4 mg/dL (1.7-2.3); Osmolality Calculated 291 mOsm/kg (285-295); Potassium 3.8 mmol/L (3.5-5.1); Sodium 139 mmol/L (136-145); Total Bilirubin 0.3 mg/dL (0.15-1.2); Total Protein 6.3 g/dL (6.6-8.7)
[2024-06-07] MEDS: nicotine 21 mg Patch 1 PATCH TRANSDERMA (07:30)
[2024-06-07] MEDS: atomoxetine 40 mg Capsule 80 MG PO (07:30)
[2024-06-07] MEDS: sacubitril/valsartan 24-26 mg Tablet 1 EACH PO (07:31)
[2024-06-07] MEDS: doxycycline 100 mg Tablet PO (07:31)
[2024-06-07] MEDS: carvedilol 3.125 mg Tablet PO (07:31)
[2024-06-07] MEDS: lamoTRIgine 25 mg Tablet PO (07:31)
[2024-06-07] MEDS: aspirin 81 mg EC Tablet PO (07:31)
[2024-06-07 08:00] VITALS: BP 143/95; PULSE 100; RESP 16; TEMP 36.4; O2SAT 98
--- NOTE | 2024-06-07 08:47 | PC.CHAP ---
Pastoral Care Encounter/Spiritual Assessment Type of Contact [] Declined cinder pit worker visit [] Patient/Family/Request visit [] Outpatient visit [] Follow-up visit [] Physician referral [] Code/Alert [x] Routine visit [] Staff referral [] Actively dying [] Patient sleeping [] Family support [] [] Out of room [] Palliative care [] [] Receiving care in room [] Pre-surgical visit [] Trauma [] Long length of stay [] ICU visit [] Other: Relational/Emotional Strength [x] Patient feels connected with others/family/visitors/staff [] Distress [] Loneliness/isolation [] Abandonment Spirituality of Patient [] Person of Rachna [] Attends Orthodoxy of their Rachna [x] Believes in Prayer [] Reads Bible or Cheondoism materials [] There are Spiritual issues to be addressed Interventional Radiologist Interventions [x] Prayer [x] Active listening [x] Non-anxious presence [] Spiritual/emotional support [] Crisis/trauma care [] Spiritual counseling [] Bereavement support [] Provided bereavement packet [] Provided Bible/devotional materials [] Provided toy/stuffed animal, coloring book to patient or family member [] Provided Communion [] Anointing/[place] [] Salvation [] Completed spiritual assessment [] Other: Impact on Illness or Injury [] Angry [] Fearful [] Anxious [] Often cries [] Exhaustion [] Unable to work [] Unable to attend zoroastrian [] Unable to walk/stand [] Unable to read [] Unable to drive [] Unable to eat/drink [] Unable to sleep [] Unable to be with family [] Patient intubated [] Other: Summary Time spent with patient 10 min
[2024-06-07] MEDS: acetaminophen 325 mg Tablet 650 MG PO (10:59)
[2024-06-07] MEDS: insulin glargine 100 units/1 mL 5 UNIT SUBCUT (11:00)
[2024-06-07 11:14] LABS: Glucose Point of Care 110 mg/dL (70-110)
[2024-06-07 11:38] LABS: Glucose Point of Care 127 mg/dL (70-110)
[2024-06-07 12:00] VITALS: BP 151/97; PULSE 91; RESP 16; TEMP 36.2; O2SAT 99
--- NOTE | 2024-06-07 12:22 | P.DS_ITS ---
Discharge Providers Date of Admission: 06/06/24 00:43 Date of Discharge: June 07, 2024 Attending Provider at Admission: Simone Martin Attending Provider at Discharge: Ronal Teran MD Primary Care Provider: Serenity Long DO Diagnoses at Discharge Discharge Diagnosis (1) Hypoglycemia due to insulin: Status: Acute (2) Seizure: Status: Acute Permanent problem details: in Sep 2023, after episode of hypoglycemia (3) CHRISTY (acute kidney injury): Status: Acute Reason for Visit Reason for Visit: post seizure Hospital Course Hospital Course Pleasant 38-year-old gentleman currently undergoing rehabilitation at [facility] facility due to EtOH use disorder, marijuana use, with past medical history of IDDM also on Trulicity, Farxiga, CAD, [employer] RCA with unsuccessful PTCA complicated by TIA during coronary angiogram, on medical therapy, also with cardiomyopathy, CHF, chronically on torsemide, other medical problems including musculoskeletal pain of the trapezius muscles intermittently for which she takes ibuprofen, with recent visit to ER on 06/02 with heat exhaustion, dehydration at the time, creatinine at that point 1.7, with negative troponin, CTA without evidence of PE. He was brought in for evaluation in ER today after witnessed seizure at [facility]. Blood sugar checked at that time was 46. He has a history of 1 seizure back in September 2023 which she states occurred after he became hypoglycemic after giving himself insulin and being unable to tolerate a meal afterwards due to GI issues and vomiting. He received D10, blood sugar subsequently 108, but has been found not able to at the moment maintain blood sugars on his own with blood sugars decreasing again down into the 50s, requiring additional D10 push. So far without recurrence of fever. He otherwise is found to have mild hypokalemia at 3.3, but also worsening CHRISTY, creatinine 2, BUN 28. Unknown basel ine renal function. Patient was admitted to [facility] for hypoglycemia secondary insulin, initially managed on D10 drip, transitioned off D10, position to insulin sliding scale, no recurrent hypoglycemic episodes. On discharge I had an extensive discussion with patient, for now we will discontinue his Lantus. Continue insulin sliding scale, Farxiga, Trulicity, discussed hypoglycemic plan, glucagon, glucose tablets. He voiced understanding all questions answered, agreed to proceed. For his episode of seizure likely second hypoglycemia no recurrent hypoglycemic episodes or seizure episodes during his hospitalization Rhabdomyolysis improved with IV fluids CHRISTY improved with IV fluids Creatinine at discharge 1.4, this would allow Mariah Garcia Decrease torsemide dose to 1 tablet daily Follow-up with endocrinology as outpatient -IF YOU DEVELOP HYPOGLYCEMIA PLEASE USE GLUCAGON PEN AND GLUCOSE TABLET -PLEASE STOP LANTUS -CONTINUE INSULIN SLIDING SCALE WITH TRACEY -Please monitor your blood sugars closely -Monitor your blood sugars 3 times daily as after meals -Please record your blood sugars, and a blood sugar log -For your lispro -Please inject blood sugar after meals based on sliding scale provided -Do not inject insulin if you do not eat as hypoglycemia kills -This is a lispro sliding scale -Insulin sliding ?fingerstick? Insulin ?141-180?0 units/sq 181-220?2 units/sq ?221-260?4 units/sq ?261-300 6 units/sq ?301-350?8 units/sq ?351-400 10 units/sq ?401-450?12 units/sq >450? 14units/sq -If your blood sugar is greater than 500 go to the emergency room -If your blood sugar is less than 60 or at anytime you feel lightheaded or dizzy or diaphoretic or have chest palpitations check your blood sugar, and eat a hard candy or drink orange juice and go immediately to the emergency room -Remember hypoglycemia kills, so if his blood sugar is less than 60 we have to increase it by taking in a sugary meal such as a hard candy or orange juice and go to the emergency room -If you have any questions please call us where here to help Physical Exam Const: COMMON NORMALS: no acute distress and patient oriented x3 Resp: COMMON NORMALS: normal respiratory effort, No retractions, No use of accessory muscles and clear to auscultation bilaterally AUSCULTATION: clear to auscultation bilaterally Cardio: COMMON NORMALS: regular rate, regular rhythm, S1 normal heart sound present and S2 normal heart sound present RATE: regular rate RHYTHM: regular rhythm HEART SOUNDS: S1 normal heart sound present and S2 normal heart sound present GI: COMMON NORMALS: Normal to inspection, nondistended, normoactive bowel sounds present and non-tender Extremity: COMMON NORMALS: no pedal edema Neuro: COMMON NORMALS: patient oriented x3 Psych: COMMON NORMALS: mental status grossly normal Discharge Data Studies Completed and Pending Completed Studies During Hospitalization Category Date Time Status US kidney bilateral with bladder [US renal BI with PV Ultrasound 06/06/24 01:33 Completed bladder] Routine Pending at discharge Category Date Time Status Complete Blood Count w/Auto AM LABS Lab 06/08/24 04:00 Ordered Complete Blood Count w/Auto AM LABS Lab 06/09/24 04:00 Ordered Comprehensive Metabolic Panel AM LABS Lab 06/08/24 04:00 Ordered Comprehensive Metabolic Panel AM LABS Lab 06/09/24 04:00 Ordered Radiology Impressions Renal Ultrasound 06/06/24 01:33 IMPRESSION: Normal renal ultrasound. No post void urinary bladder residual noted. No intraluminal filling defects within the bladder. Laboratory Results WBC 8.47 10^3/uL (3.29-11.43) 06/07/24 04:14 RBC 5.46 10^6/uL (3.85-5.65) 06/07/24 04:14 Hgb 15.70 g/dL (11.27-16.99) 06/07/24 04:14 Hct 48.2 % (37-53) 06/07/24 04:14 MCV 88.3 fl (82-101) 06/07/24 04:14 MCH 28.8 pg (27-33) 06/07/24 04:14 MCHC 32.6 g/dL (30-55) 06/07/24 04:14 RDW 12.4 % (12.1-15.1) 06/07/24 04:14 Plt Count 239 10^3/cmm (157-399) 06/07/24 04:14 MPV 10.3 fL (7.4-10.4) 06/07/24 04:14 Neut % (Auto) 55.5 % 06/07/24 04:14 Lymph % (Auto) 32.8 % 06/07/24 04:14 [place] % (Auto) 7.6 % 06/07/24 04:14 Eos % (Auto) 3.3 % 06/07/24 04:14 Baso % (Auto) 0.6 % 06/07/24 04:14 Neut # (Auto) 4.70 10^3/uL (1.8-7.7) 06/07/24 04:14 Lymph # (Auto) 2.8 10^3/uL (0.8-4.8) 06/07/24 04:14 [place] # (Auto) 0.6 10^3/uL (0.2-0.9) 06/07/24 04:14 Eos # (Auto) 0.3 10^3/uL (0.0-0.8) 06/07/24 04:14 Baso # (Auto) 0.1 10^3/uL (0.0-0.1) 06/07/24 04:14 Nucleated RBC % (auto) 0 % 06/07/24 04:14 Nucleated RBCs # 0.0 /100WBC 06/07/24 04:14 Sodium 139 mmol/L (136-145) 06/07/24 04:14 Potassium 3.8 mmol/L (3.5-5.1) 06/07/24 04:14 Chloride 104 mmol/L (98-107) 06/07/24 04:14 Carbon Dioxide 23 mmol/L (22-29) 06/07/24 04:14 Anion Gap 15.8 (5-19) 06/07/24 04:14 BUN 18 mg/dL (6-20) 06/07/24 04:14 Creatinine 1.4 mg/dL (0.7-1.2) H 06/07/24 04:14 GFR Calculation 57.0 mL/min (90-130) L 06/07/24 04:14 Glucose 114 mg/dL (65-115) 06/07/24 04:14 POC Glucose 127 mg/dL (70-110) H 06/07/24 10:59 Estimat Average Glucose 217 06/05/24 22:00 Hemoglobin A1c 9.2 % (4.0-6.0) H 06/05/24 22:00 Calculated Osmolality 291 mOsm/kg (285-295) 06/07/24 04:14 Calcium 8.6 mg/dL (8.5-10.5) 06/07/24 04:14 Magnesium 2.4 mg/dL (1.7-2.3) H 06/07/24 04:14 Total Bilirubin 0.3 mg/dL (0.15-1.2) 06/07/24 04:14 AST 33 U/L (0-40) 06/07/24 04:14 ALT 28 U/L (0-41) 06/07/24 04:14 Alkaline Phosphatase 98 U/L (40-130) 06/07/24 04:14 Creatine Kinase 511 U/L (39-308) H* 06/05/24 22:00 Total Protein 6.3 g/dL (6.6-8.7) L 06/07/24 04:14 Albumin 3.6 g/dL (3.5-5.2) 06/07/24 04:14 Globulin 2.7 g/dL (1.3-4.6) 06/07/24 04:14 Urine Color Yellow (Yellow) 06/05/24 23:35 Urine Appearance Clear (CLEAR) 06/05/24 23:35 Urine pH 6.0 (5-7) 06/05/24 23:35 Ur Specific [place] 1.013 (1.005-1.030) 06/05/24 23:35 Urine Protein 2+ (Negative) A 06/05/24 23:35 Urine Glucose (UA) 3+ (Normal) H 06/05/24 23:35 Urine Ketones Negative (Negative) 06/05/24 23:35 Urine Blood Non-haemolysed trace (Negative) 06/05/24 23:35 Urine Nitrate Negative (Negative) 06/05/24 23:35 Urine Bilirubin Negative (Negative) 06/05/24 23:35 Urine Urobilinogen 0.2 mg/dL (Negative) 06/05/24 23:35 Ur Leukocyte Esterase Negative (Negative) 06/05/24 23:35 Amorphous Sediment Not Reportable 06/05/24 23:35 Urine Opiates Screen Negative ng/mL (Negative) 06/05/24 23:35 Ur Barbiturates Screen Negative ng/mL (Negative) 06/05/24 23:35 Ur Phencyclidine Scrn Negative ng/mL (Negative) 06/05/24 23:35 Ur Amphetamines Screen Negative ng/mL (Negative) 06/05/24 23:35 U Benzodiazepines Scrn Negative ng/mL (Negative) 06/05/24 23:35 Urine Cocaine Screen Negative ng/mL (Negative) 06/05/24 23:35 U Marijuana (THC) Screen Negative ng/mL (Negative) 06/05/24 23:35 Vitals Last Vital Signs Temp 97.6 F 06/07/24 08:00 Pulse 100 06/07/24 08:00 Resp 16 06/07/24 08:00 BP 143/95 06/07/24 08:00 Pulse Ox 98 06/07/24 08:00 O2 Del Method Room Air 06/07/24 04:00 Discharge Plan Discharge Patient Disposition: Home Condition: Stable Prescriptions: New Glucagon (HCl) Emergency Kit 1 mg recon soln 1 mg IM Q20M PRN (Reason: hypoglycemia) Qty: 1 0RF Rx Instructions: until target blood sugar attained glucose 4 gram tablet,chewable 4 g PO Q15M PRN (Reason: hypoglycemia) 30 Days Qty: 30 0RF Rx Instructions: until symptoms of low blood sugar are controlled Continued cyclobenzaprine 10 mg Tablet 10 mg PO TID PRN (Reason: pain) atorvastatin 80 mg Tablet 80 mg PO BEDTIME carvedilol 3.125 mg Tablet 3.125 mg PO BID Rx Instructions: must administer with a meal/food Lamictal 25 mg Tablet 25 mg PO BID trazodone 100 mg tablet 100 mg PO BEDTIME insulin lispro 100 unit/mL solution See Rx Instructions .ROUTE .COMPLEX Rx Instructions: INJECT 5 UNITS FOR EVERY 15 GRAMS OF CHO AND 1 UNIT FOR EVERY 25 POINTS OVER A GLUCOSE OF 125. MAX 100 UNITS PER DAY ondansetron 4 mg tablet,disintegrating 4 mg PO TID PRN (Reason: Nausea And Vomiting) doxycycline hyclate 100 mg tablet 100 mg PO BID atomoxetine 80 mg Capsule 80 mg PO DAILY Trintellix 20 mg Tablet 20 mg PO DAILY Farxiga 10 mg tablet 10 mg PO DAILY Entresto 24-26 mg Tablet 1 tab PO BID (DME) diabetic shoes with 3 inserts 13.5 package See Rx Instructions Rx Instructions: As directed to the shoe quinten aspirin 81 mg Capsule 81 mg PO DAILY Afrin (oxymetazoline) 0.05 % Mist 2 spray INTRANASAL Q12H PRN (Reason: Allergy Symptoms) Changed torsemide 40 mg Tablet 40 mg PO DAILY 30 Days Qty: 30 0RF Discontinued Lantus Solostar U-100 Insulin 100 unit/mL (3 mL) Insulin Pen 25 unit SUBCUT BID ibuprofen 800 mg tablet 800 mg PO TID PRN (Reason: Pain) Discharge Orders: Discharge Order (Routine); Ordered 06/07/24 Ordered By: Ronal Teran Referrals: Serenity Long DO [Primary Care Provider] - Luisito Lowry MD [Physician] - 1 week Brendon Baker MD [Physician] - 1-3 days Discharge Diet: Cardiac Discharge Activity: Resume usual activity Patient Instructions: Hypoglycemia, Hypoglycemia in a Person with Diabetes (DC), What to Do if Your Blood Sugar is Low (DC), Opioid Safety Activity Restrictions/Additional Instructions: -IF YOU DEVELOP HYPOGLYCEMIA PLEASE USE GLUCAGON PEN AND GLUCOSE TABLET -PLEASE STOP LANTUS -CONTINUE INSULIN SLIDING SCALE WITH FARXIGA AND TRULICITY -Please monitor your blood sugars closely -Monitor your blood sugars 3 times daily as after meals -Please record your blood sugars, and a blood sugar log -For your lispro -Please inject blood sugar after meals based on sliding scale provided -Do not inject insulin if you do not eat as hypoglycemia kills -This is a lispro sliding scale -Insulin sliding ?fingerstick? Insulin ?141-180?0 units/sq 181-220?2 units/sq ?221-260?4 units/sq ?261-300 6 units/sq ?301-350?8 units/sq ?351-400 10 units/sq ?401-450?12 units/sq >450? 14units/sq -If your blood sugar is greater than 500 go to the emergency room -If your blood sugar is less than 60 or at anytime you feel lightheaded or dizzy or diaphoretic or have chest palpitations check your blood sugar, and eat a hard candy or drink orange juice and go immediately to the emergency room -Remember hypoglycemia kills, so if his blood sugar is less than 60 we have to increase it by taking in a sugary meal such as a hard candy or orange juice and go to the emergency room -If you have any questions please call us where here to help Discharge Attestations Time Spent in Discharge Care*: greater than 30 min Quality Metrics Clinical Quality Measures [ No reported AMI, CVA or VTE this stay] Coding Level of Care Code 68329 Total time (in minutes) for Discharge: 45 Diagnoses Hypoglycemia due to insulin E16.0; T38.3X5A Seizure R56.9 CHRISTY (acute kidney injury) N17.9
[2024-06-07 16:27] VITALS: BP 151/97; PULSE 91; RESP 16; TEMP 36.2; O2SAT 99
== END 2024-06-07 16:29 | disposition home or self-care (01) ==
LOC: ER 06-06 00:13 → MEDSURG 06-06 00:43
PROVIDERS: Admitting Provider Internal Medicine; Emergency Provider Emergency Medicine; PCP Family Medicine; Visit Provider Family Medicine
DX: E16.0 Drug-induced hypoglycemia without coma (principal); T38.3X5A Adverse effect of insulin and oral hypoglycemic [antidiabetic] drugs, initial encounter; R56.9 Unspecified convulsions; N17.9 Acute kidney failure, unspecified; I25.10 Atherosclerotic heart disease of native coronary artery without angina pectoris; Z86.73 Personal history of transient ischemic attack (TIA), and cerebral infarction without residual deficits; M62.82 Rhabdomyolysis; E11.65 Type 2 diabetes mellitus with hyperglycemia; Z79.4 Long term (current) use of insulin; I50.9 Heart failure, unspecified
CPT/HCPCS: 36415; 36416; 76770; 76857; 80053; 80306; 81003; 81015; 82550; 82962; 83036; 83735; 85025; 93005; 96361; 96372; 96374; 99285; G0378; J1815; J2405; J7030; J7799

== ENCOUNTER → 2024-06-26 10:45 | Outpatient (BNVA) | payer MEDICAID, SELFPAY | PROVIDERS: PCP Family Medicine; Visit Provider Internal Medicine | DX: E11.9 Type 2 diabetes mellitus without complications (principal) | CPT/HCPCS: 36415; 80053; 84681; 86337; 86341 ==